=== PATIENT | female | born 1945 | race Caucasian/White ===

== ENCOUNTER 2017-05-20 13:31 | Observation (INO) | payer OTHER ==
[~2017-05-20] VITALS: Ht 142.2 cm; Wt 84.5 kg
[2017-05-20 14:06] LABS: HEMATOCRIT 34.5 % (36.0-46.0); HEMOGLOBIN 12.1 G/DL (11.9-15.5); MCH 30.8 PG (29.0-34.0); MCHC 35.1 G/DL (30.0-36.0); MCV 87.8 FL (83-99); PLATELET COUNT 139 K/uL (156-360); RBC DIS.WIDTH-CV 13.1 % (11.8-14.6); RBC DIS.WIDTH-SD 42.2 % (39-53); RED BLOOD COUNT 3.93 M/uL (3.80-5.20); WHITE BLOOD COUNT 11.3 K/uL (4.1-10.2)
[2017-05-20 14:15] LABS: CHLORIDE 94 mEq/L (99-109); POTASSIUM 3.9 mEq/L (3.7-5.4); SODIUM 128 mEq/L (136-147)
[2017-05-20 14:17] LABS: GLUCOSE 305 mg/dL (70-99)
[2017-05-20 14:21] LABS: CREATININE 1.8 mg/dL (0.6-1.3); GFR ESTIMATE (CALCULATED) 29 mL/min/; UREA NITROGEN (BUN) 27 mg/dL (9-23)
[2017-05-20 14:29] LABS: TROP-I INTERPRETATION NEGATIVE; TROPONIN-I 0.02 ng/mL (0.0-0.30)
[2017-05-20 15:59] LABS: MAGNESIUM 1.2 mg/dL (1.3-2.7)
[2017-05-20] MEDS ORDERED: BENZONATATE200 MG PO (17:30)
[2017-05-20] MEDS ORDERED: MAG-OXIDE400 MG PO (17:31)
[2017-05-20] MEDS ORDERED: CALCITRIOL0.25 MCG PO (17:31)
[2017-05-20] MEDS ORDERED: MONTELUKAST SOD10 MG PO (17:33)
[2017-05-20] MEDS ORDERED: ALLOPURINOL100 MG PO (17:35)
[2017-05-20] MEDS ORDERED: GLIPIZIDE XL10 MG PO (17:37)
[2017-05-20] MEDS ORDERED: PRAVASTATIN SOD20 MG PO (17:39)
[2017-05-20] MEDS ORDERED: NABI650T PO (17:40)
[2017-05-20] MEDS ORDERED: LANTUS 3 M100 UNITS1 SC (17:41)
[2017-05-20] MEDS ORDERED: VENTOLIN HFA18 GM IH (17:43)
[2017-05-20] MEDS ORDERED: JANUVIA25 MG PO (17:44)
[2017-05-20] MEDS ORDERED: HYDROCHLOROTHIA25 MG PO (17:45)
[2017-05-20] MEDS ORDERED: LABETALOL HCL300 MG PO (17:46)
[2017-05-20] MEDS ORDERED: LABETALOL HCL200 MG PO (17:48)
[2017-05-20] MEDS ORDERED: LO-DOSE ASPIRIN81 M2 PO (17:50)
[2017-05-20] MEDS ORDERED: ZYRTEC10 M3 PO (17:51)
[2017-05-20 19:30] VITALS: BP 170/90
[2017-05-20 20:19] LABS: TROP-I INTERPRETATION NEGATIVE; TROPONIN-I 0.06 ng/mL (0.0-0.30)
[2017-05-21] VITALS (8 sets, daily range): BP systolic 116–180; BP diastolic 63–97
[2017-05-21 02:41] LABS: TROP-I INTERPRETATION NEGATIVE; TROPONIN-I 0.22 ng/mL (0.0-0.30)
[2017-05-21 05:29] LABS: HEMATOCRIT 35.5 % (36.0-46.0); HEMOGLOBIN 12.1 G/DL (11.9-15.5); MCH 30.2 PG (29.0-34.0); MCHC 34.1 G/DL (30.0-36.0); MCV 88.5 FL (83-99); PLATELET COUNT 156 K/uL (156-360); RBC DIS.WIDTH-CV 13.2 % (11.8-14.6); RBC DIS.WIDTH-SD 42.8 % (39-53); RED BLOOD COUNT 4.01 M/uL (3.80-5.20); WHITE BLOOD COUNT 12.5 K/uL (4.1-10.2)
[2017-05-21 06:50] LABS: CHLORIDE 93 MEQ/L (99-109); CREATININE 1.8 MG/DL (0.6-1.3); GFR ESTIMATE (CALCULATED) 29 mL/min/; POTASSIUM 3.7 MEQ/L (3.7-5.4); SODIUM 129 MEQ/L (136-147); UREA NITROGEN (BUN) 27 mg/dL (9-23)
[2017-05-21 06:52] LABS: GLUCOSE 136 mg/dL (70-99)
[2017-05-21 07:56] LABS: THYROTROPIN (TSH) 1.5 MIU/L (0.4-5.5)
[2017-05-22] VITALS (8 sets, daily range): BP systolic 129–194; BP diastolic 73–99
[2017-05-23 03:30] VITALS: BP 144/92
[2017-05-23 08:19] VITALS: BP 146/83
[2017-05-23 09:59] LABS: CHLORIDE 98 MEQ/L (99-109); CREATININE 1.8 MG/DL (0.6-1.3); GFR ESTIMATE (CALCULATED) 29 mL/min/; MAGNESIUM 1.6 mg/dl (1.3-2.7); POTASSIUM 3.5 MEQ/L (3.7-5.4); SODIUM 132 MEQ/L (136-147)
[2017-05-23 10:01] LABS: GLUCOSE 227 mg/dL (70-99); UREA NITROGEN (BUN) 51 mg/dL (9-23)
[2017-05-23 12:15] VITALS: BP 136/88
[2017-05-23 15:34] VITALS: BP 137/100
[2017-05-23 19:30] VITALS: BP 158/82
[2017-05-24 00:16] VITALS: BP 176/91
[2017-05-24 02:24] VITALS: BP 142/86
[2017-05-24 06:27] LABS: HEMATOCRIT 37.2 % (36.0-46.0); HEMOGLOBIN 12.8 G/DL (11.9-15.5); MCH 30.9 PG (29.0-34.0); MCHC 34.4 G/DL (30.0-36.0); MCV 89.9 FL (83-99); RBC DIS.WIDTH-CV 13.2 % (11.8-14.6); RED BLOOD COUNT 4.14 M/uL (3.80-5.20); WHITE BLOOD COUNT 13.8 K/uL (4.1-10.2)
[2017-05-24 06:35] LABS: CHLORIDE 99 MEQ/L (99-109); CREATININE 1.7 MG/DL (0.6-1.3); GFR ESTIMATE (CALCULATED) 31 mL/min/; GLUCOSE 203 mg/dL (70-99); MAGNESIUM 1.8 mg/dl (1.3-2.7); SODIUM 130 MEQ/L (136-147); UREA NITROGEN (BUN) 50 mg/dL (9-23)
[2017-05-24 06:47] LABS: PLATELET COUNT 253 K/uL (156-360)
[2017-05-24 08:54] VITALS: BP 140/89
[2017-05-24 11:42] VITALS: BP 152/69
[2017-05-24 16:45] VITALS: BP 155/79
[2017-05-24 19:05] VITALS: BP 168/79
[2017-05-25] VITALS (7 sets, daily range): BP systolic 137–191; BP diastolic 75–95
[2017-05-25 06:20] LABS: HEMATOCRIT 37.6 % (36.0-46.0); HEMOGLOBIN 12.7 G/DL (11.9-15.5); MCH 29.8 PG (29.0-34.0); MCHC 33.8 G/DL (30.0-36.0); MCV 88.3 FL (83-99); PLATELET COUNT 291 K/uL (156-360); RBC DIS.WIDTH-CV 13.1 % (11.8-14.6); RBC DIS.WIDTH-SD 42.5 % (39-53); RED BLOOD COUNT 4.26 M/uL (3.80-5.20); WHITE BLOOD COUNT 12.1 K/uL (4.1-10.2)
[2017-05-25 07:01] LABS: CHLORIDE 100 MEQ/L (99-109); CREATININE 1.7 MG/DL (0.6-1.3); GFR ESTIMATE (CALCULATED) 31 mL/min/; GLUCOSE 131 mg/dL (70-99); POTASSIUM 4.4 MEQ/L (3.7-5.4); SODIUM 135 MEQ/L (136-147); UREA NITROGEN (BUN) 51 mg/dL (9-23)
[2017-05-25 07:07] LABS: MAGNESIUM 2.3 mg/dl (1.3-2.7)
[2017-05-26 04:00] VITALS: BP 141/63
[2017-05-26 06:05] LABS: HEMOGLOBIN 11.6 G/DL (11.9-15.5); MCH 30.2 PG (29.0-34.0); MCHC 34.1 G/DL (30.0-36.0); MCV 88.5 FL (83-99); PLATELET COUNT 265 K/uL (156-360); RBC DIS.WIDTH-CV 13.1 % (11.8-14.6); RBC DIS.WIDTH-SD 42.3 % (39-53); RED BLOOD COUNT 3.84 M/uL (3.80-5.20); WHITE BLOOD COUNT 12.3 K/uL (4.1-10.2)
[2017-05-26 06:39] LABS: CHLORIDE 96 MEQ/L (99-109); CREATININE 1.7 MG/DL (0.6-1.3); GFR ESTIMATE (CALCULATED) 31 mL/min/; GLUCOSE 126 mg/dL (70-99); POTASSIUM 4.2 MEQ/L (3.7-5.4); SODIUM 129 MEQ/L (136-147); UREA NITROGEN (BUN) 44 mg/dL (9-23)
[2017-05-26 07:28] VITALS: BP 165/90
[2017-05-26] MEDS ORDERED: ROBITUSSIN DM118 ML PO (09:28)
[2017-05-26] MEDS ORDERED: NIFEDIPINE ER30 MG PO (09:28)
[2017-05-26] MEDS ORDERED: LOPRESSOR100 M1 PO (09:28)
[2017-05-26] MEDS ORDERED: CARDIZEM60 MG PO (09:28)
[2017-05-26] MEDS ORDERED: BENZONATATE200 MG PO (09:28)
[2017-05-26] MEDS ORDERED: PRAVASTATIN SOD40 MG PO (09:28)
[2017-05-26] MEDS ORDERED: LEVEMIR100 UNIT/2 SC (09:28)
[2017-05-26] MEDS ORDERED: ELIQUIS5 MG PO (09:28)
[2017-05-26 11:38] VITALS: BP 159/74
[2017-05-26 15:04] VITALS: BP 164/73
[2017-05-26 21:10] VITALS: BP 151/68
[2017-05-26 23:35] VITALS: BP 155/63
[2017-05-27 01:20] VITALS: BP 144/63
[2017-05-27 01:26] VITALS: BP 144/63
[2017-05-27 03:56] VITALS: BP 167/77
[2017-05-27 07:30] VITALS: BP 169/79
[2017-05-27 11:23] VITALS: BP 147/69
[2017-05-27] MEDS ORDERED: NIFEDIPINE ER60 MG PO (12:58)
[2017-05-27] MEDS ORDERED: ZOFRAN4 MG PO (12:59)
[2017-05-27] MEDS ORDERED: JANUVIA25 M1 PO (13:13)
[2017-05-27] MEDS ORDERED: JANUVIA25 MG PO (14:05)
== END 2017-05-27 15:04 | disposition home or self-care (01) ==
LOC: EME 13:31 → EDOF 16:52 → 4EAST 16:52 → 3EAST 16:52 → ENRESERV 16:54 → 4EAST 19:13 → ENPENDDIS 05-26 → ENRESERV 05-27 00:27 → 3EAST 05-27 01:16
PROVIDERS: Family Medicine; Hospitalist; Internal Medicine; Physician Assistant Medical
DX: I48.91 Unspecified atrial fibrillation (principal); J20.9 Acute bronchitis, unspecified; I16.0 Hypertensive urgency; I12.9 Hypertensive chronic kidney disease with stage 1 through stage 4 chronic kidney disease, or unspecified chronic kidney disease; E11.22 Type 2 diabetes mellitus with diabetic chronic kidney disease; N18.3 Chronic kidney disease, stage 3 (moderate); E78.5 Hyperlipidemia, unspecified; E87.1 Hypo-osmolality and hyponatremia; E87.6 Hypokalemia; E83.42 Hypomagnesemia; M10.9 Gout, unspecified; Z87.01 Personal history of pneumonia (recurrent); Z86.19 Personal history of other infectious and parasitic diseases; Z85.528 Personal history of other malignant neoplasm of kidney; Z79.84 Long term (current) use of oral hypoglycemic drugs; Z79.82 Long term (current) use of aspirin; Z91.041 Radiographic dye allergy status
CPT/HCPCS: 71046; 80048; 82948; 83735; 83880; 84443; 84484; 85027; 93005; 93306; 94640; 94640 76; 94799; 99202; 99281; 99285; G0378; G8987 GO CH; G8988 GO CH; G8989 GO CH; J1160; J1650; J1815; J1940; J3475; J7512; S0028

== ENCOUNTER 2017-05-29 22:19 | Inpatient (IN) | payer OTHER ==
[~2017-05-29] VITALS: Ht 142.2 cm; Wt 83.4 kg
[~2017-05-29 22:19] MED LIST: ALLOPURINOL100 MG PO; BENZONATATE200 MG PO; CALCITRIOL0.25 MCG PO; CARDIZEM60 MG PO; ELIQUIS5 MG PO; GLIPIZIDE XL10 MG PO; HYDROCHLOROTHIA25 MG PO; JANUVIA25 M1 PO; JANUVIA25 MG PO; LABETALOL HCL200 MG PO; LABETALOL HCL300 MG PO; LANTUS 3 M100 UNITS1 SC; LEVEMIR100 UNIT/2 SC; LO-DOSE ASPIRIN81 M2 PO; LOPRESSOR100 M1 PO; MAG-OXIDE400 MG PO; MONTELUKAST SOD10 MG PO; NABI650T PO; NIFEDIPINE ER30 MG PO; NIFEDIPINE ER60 MG PO; PRAVASTATIN SOD20 MG PO; PRAVASTATIN SOD40 MG PO; ROBITUSSIN DM118 ML PO; VENTOLIN HFA18 GM IH; ZOFRAN4 MG PO; ZYRTEC10 M3 PO
[2017-05-29 23:54] LABS: HEMOGLOBIN 10.6 G/DL (11.9-15.5); MCH 31.1 PG (29.0-34.0); MCHC 36.6 G/DL (30.0-36.0); RBC DIS.WIDTH-CV 12.7 % (11.8-14.6); RBC DIS.WIDTH-SD 38.6 % (39-53); RED BLOOD COUNT 3.41 M/uL (3.80-5.20); WHITE BLOOD COUNT 19.2 K/uL (4.1-10.2)
[2017-05-29 23:59] LABS: PLATELET COUNT 392 K/uL (156-360)
[2017-05-30] VITALS (21 sets, daily range): BP systolic 102–139; BP diastolic 42–90
[2017-05-30 00:05] LABS: CHLORIDE 77 mEq/L (99-109)
[2017-05-30 00:11] LABS: UREA NITROGEN (BUN) 58 mg/dL (9-23)
[2017-05-30 00:16] LABS: CREATININE 3.2 mg/dL (0.6-1.3); GFR ESTIMATE (CALCULATED) 15 mL/min/; GLUCOSE 619 mg/dL (70-99); POTASSIUM 6.3 mEq/L (3.7-5.4); SODIUM 111 mEq/L (136-147)
[2017-05-30 00:19] LABS: TROP-I INTERPRETATION NEGATIVE; TROPONIN-I 0.02 ng/mL (0.0-0.30)
[2017-05-30] MEDS ORDERED: PRAVACHOL40 MG PO (01:01)
[2017-05-30] MEDS ORDERED: NIFEDIPINE ER60 MG PO (01:01)
[2017-05-30] MEDS ORDERED: ROBITUSSIN DM118 ML PO (01:02)
[2017-05-30] MEDS ORDERED: JANUVIA25 MG PO (01:03)
[2017-05-30] MEDS ORDERED: TYLENOL EXTRA500 MG PO (01:04)
[2017-05-30 02:14] LABS: BASE EXCESS 3.9 mEq/L (-3 to +3); BICARBONATE 27.3 mEq/L (22-26); CARBOXY HGB 2.2 % (0-5); METHEMOGLOBIN 1.1 % (0-1.5); PCO2 35 mm Hg (35-45); PO2 72 mm Hg (80-100)
[2017-05-30 02:15] LABS: COMMENTS - BLOOD GASES C+A+; DEVICE 980 VENT; FI02 40 %; MODE SPONT NIPPV; PEEP 5 CM/H20; PRES. SUPPORT 12 CM/H2O; SITE RR; TOTAL RESP RATE 16 resp/min
[2017-05-30 02:50] LABS: ALBUMIN 3.6 g/dL (3.2-4.8)
[2017-05-30 02:53] LABS: TOTAL PROTEIN 7.2 g/dL (6.4-8.3)
[2017-05-30 02:55] LABS: TOTAL BILIRUBIN 0.8 mg/dL (0.0-1.0)
[2017-05-30 02:56] LABS: ALKALINE PHOSPHATASE 221 IU/L (3-129)
[2017-05-30 02:58] LABS: AST (GOT) 62 IU/L (2-34)
[2017-05-30 02:59] LABS: ALT (GPT) 63 IU/L (3-49)
[2017-05-30 03:55] LABS: CHLORIDE 82 mEq/L (99-109); POTASSIUM 5.1 mEq/L (3.7-5.4)
[2017-05-30 04:01] LABS: CREATININE 3.3 mg/dL (0.6-1.3); GFR ESTIMATE (CALCULATED) 15 mL/min/
[2017-05-30 04:02] LABS: UREA NITROGEN (BUN) 62 mg/dL (9-23)
[2017-05-30 04:08] LABS: GLUCOSE 483 mg/dL (70-99); SODIUM 117 mEq/L (136-147)
[2017-05-30 07:14] LABS: CREATININE 3.2 MG/DL (0.6-1.3); GFR ESTIMATE (CALCULATED) 15 mL/min/; POTASSIUM 4.9 MEQ/L (3.7-5.4); UREA NITROGEN (BUN) 60 mg/dL (9-23)
[2017-05-30 07:20] LABS: CHLORIDE 81 MEQ/L (99-109); GLUCOSE 403 mg/dL (70-99); SODIUM 115 MEQ/L (136-147)
[2017-05-30 09:31] LABS: CHLORIDE 83 MEQ/L (99-109); CREATININE 3.2 MG/DL (0.6-1.3); GFR ESTIMATE (CALCULATED) 15 mL/min/; GLUCOSE 274 mg/dL (70-99); POTASSIUM 4.7 MEQ/L (3.7-5.4); UREA NITROGEN (BUN) 62 mg/dL (9-23)
[2017-05-30 09:36] LABS: SODIUM 118 MEQ/L (136-147)
[2017-05-30 12:11] LABS: BASOPHIL (%) 0.3 % (0-1); EOSINOPHIL (%) 0.6 % (0-5); EOSINOPHIL COUNT 0.1 K/uL (0-0.3); HEMATOCRIT 27.4 % (36.0-46.0); HEMOGLOBIN 9.8 G/DL (11.9-15.5); LYMPHOCYTE (%) 11.6 % (15-42); LYMPHOCYTE COUNT 1.7 K/uL (1.0-2.8); MCH 30.5 PG (29.0-34.0); MCHC 35.8 G/DL (30.0-36.0); MCV 85.4 FL (83-99); MONOCYTE (%) 8.2 % (3-12); MONOCYTE COUNT 1.2 K/uL (0-0.8); NEUTROPHIL (%) 78.3 % (45-76); NEUTROPHIL COUNT 11.1 K/uL (1.8-6.4); PLATELET COUNT 288 K/uL (156-360); RBC DIS.WIDTH-CV 12.5 % (11.8-14.6); RBC DIS.WIDTH-SD 38.4 % (39-53); RED BLOOD COUNT 3.21 M/uL (3.80-5.20); WHITE BLOOD COUNT 14.2 K/uL (4.1-10.2)
[2017-05-30 12:46] LABS: ALKALINE PHOSPHATASE 156 IU/L (3-129); ALT (GPT) 47 IU/L (3-49); AST (GOT) 36 IU/L (2-34); CHLORIDE 84 MEQ/L (99-109); CREATININE 3.2 MG/DL (0.6-1.3); GFR ESTIMATE (CALCULATED) 15 mL/min/; MAGNESIUM 2.3 mg/dl (1.3-2.7); PHOSPHORUS 3.7 mg/dL (2.5-4.9); POTASSIUM 4.3 MEQ/L (3.7-5.4); SODIUM 120 MEQ/L (136-147); TOTAL BILIRUBIN 0.5 MG/DL (0.0-1.0); TOTAL PROTEIN 5.9 G/DL (6.4-8.3); UREA NITROGEN (BUN) 62 mg/dL (9-23)
[2017-05-30 12:56] LABS: GLUCOSE 110 mg/dL (70-99)
[2017-05-30 17:07] LABS: CHLORIDE 84 MEQ/L (99-109); CREATININE 3.2 MG/DL (0.6-1.3); GFR ESTIMATE (CALCULATED) 15 mL/min/; POTASSIUM 4.3 MEQ/L (3.7-5.4); UREA NITROGEN (BUN) 62 mg/dL (9-23)
[2017-05-30 17:08] LABS: GLUCOSE 186 mg/dL (70-99)
[2017-05-30 17:11] LABS: SODIUM 119 MEQ/L (136-147)
[2017-05-30 18:35] LABS: HIGH-SENS C-REACTIVE PROTEIN > 8.00 MG/DL (0.02-0.20)
[2017-05-30 20:24] LABS: CHLORIDE 85 MEQ/L (99-109); GFR ESTIMATE (CALCULATED) 16 mL/min/; GLUCOSE 243 mg/dL (70-99); POTASSIUM 4.2 MEQ/L (3.7-5.4); SODIUM 120 MEQ/L (136-147); UREA NITROGEN (BUN) 62 mg/dL (9-23)
[2017-05-31] VITALS (8 sets, daily range): BP systolic 104–149; BP diastolic 59–90
[2017-05-31 02:25] LABS: CHLORIDE 88 mEq/L (99-109); POTASSIUM 4.3 mEq/L (3.7-5.4); SODIUM 124 mEq/L (136-147)
[2017-05-31 02:26] LABS: GLUCOSE 178 mg/dL (70-99)
[2017-05-31 02:30] LABS: GFR ESTIMATE (CALCULATED) 16 mL/min/
[2017-05-31 02:31] LABS: UREA NITROGEN (BUN) 61 mg/dL (9-23)
[2017-05-31 10:46] LABS: CHLORIDE 92 MEQ/L (99-109); CREATININE 2.7 MG/DL (0.6-1.3); GFR ESTIMATE (CALCULATED) 18 mL/min/; POTASSIUM 4.1 MEQ/L (3.7-5.4); SODIUM 126 MEQ/L (136-147); UREA NITROGEN (BUN) 57 mg/dL (9-23)
[2017-05-31 10:47] LABS: GLUCOSE 74 mg/dL (70-99)
[2017-05-31 16:00] LABS: CHLORIDE 89 MEQ/L (99-109); CREATININE 2.6 MG/DL (0.6-1.3); GFR ESTIMATE (CALCULATED) 19 mL/min/; POTASSIUM 4.2 MEQ/L (3.7-5.4); SODIUM 124 MEQ/L (136-147); UREA NITROGEN (BUN) 53 mg/dL (9-23)
[2017-05-31 16:01] LABS: GLUCOSE 278 mg/dL (70-99)
[2017-06-01] VITALS (9 sets, daily range): BP systolic 120–146; BP diastolic 56–80
[2017-06-01 06:28] LABS: VANCOMYCIN, TROUGH 14.9 MCG/ML (10-20)
[2017-06-01 07:34] LABS: CHLORIDE 93 MEQ/L (99-109); CREATININE 2.3 MG/DL (0.6-1.3); GFR ESTIMATE (CALCULATED) 22 mL/min/; POTASSIUM 3.9 MEQ/L (3.7-5.4); UREA NITROGEN (BUN) 46 mg/dL (9-23)
[2017-06-01 07:36] LABS: GLUCOSE 85 mg/dL (70-99); SODIUM 131 MEQ/L (136-147)
[2017-06-01 09:53] LABS: BASOPHIL (%) 0.5 % (0-1); BASOPHIL COUNT 0.1 K/uL (0-0.1); EOSINOPHIL (%) 0.4 % (0-5); EOSINOPHIL COUNT 0.1 K/uL (0-0.3); HEMATOCRIT 31.4 % (36.0-46.0); HEMOGLOBIN 11.3 G/DL (11.9-15.5); IMMATURE GRANULOCYTE (%) 0.6 % (0.0-0.7); LYMPHOCYTE (%) 10.2 % (15-42); LYMPHOCYTE COUNT 1.6 K/uL (1.0-2.8); MCH 31.6 PG (29.0-34.0); MCV 87.7 FL (83-99); MONOCYTE (%) 9.2 % (3-12); MONOCYTE COUNT 1.4 K/uL (0-0.8); NEUTROPHIL (%) 79.1 % (45-76); NEUTROPHIL COUNT 12.2 K/uL (1.8-6.4); PLATELET COUNT 372 K/uL (156-360); RBC DIS.WIDTH-SD 41.2 % (39-53); RED BLOOD COUNT 3.58 M/uL (3.80-5.20); WHITE BLOOD COUNT 15.4 K/uL (4.1-10.2)
[2017-06-02] VITALS (8 sets, daily range): BP systolic 121–168; BP diastolic 62–93
[2017-06-02 05:51] LABS: HEMATOCRIT 31.5 % (36.0-46.0); HEMOGLOBIN 10.7 G/DL (11.9-15.5); MCH 29.9 PG (29.0-34.0); PLATELET COUNT 338 K/uL (156-360); RBC DIS.WIDTH-CV 13.2 % (11.8-14.6); RBC DIS.WIDTH-SD 41.7 % (39-53); RED BLOOD COUNT 3.58 M/uL (3.80-5.20); WHITE BLOOD COUNT 13.2 K/uL (4.1-10.2)
[2017-06-02 06:16] LABS: CHLORIDE 93 MEQ/L (99-109); GFR ESTIMATE (CALCULATED) 26 mL/min/; SODIUM 132 MEQ/L (136-147); UREA NITROGEN (BUN) 38 mg/dL (9-23)
[2017-06-02 06:17] LABS: GLUCOSE 218 mg/dL (70-99)
[2017-06-03] VITALS (7 sets, daily range): BP systolic 150–170; BP diastolic 62–82
[2017-06-03 05:06] LABS: HEMATOCRIT 32.2 % (36.0-46.0); HEMOGLOBIN 11.2 G/DL (11.9-15.5); MCH 30.7 PG (29.0-34.0); MCHC 34.8 G/DL (30.0-36.0); MCV 88.2 FL (83-99); PLATELET COUNT 329 K/uL (156-360); RBC DIS.WIDTH-CV 13.2 % (11.8-14.6); RBC DIS.WIDTH-SD 43.1 % (39-53); RED BLOOD COUNT 3.65 M/uL (3.80-5.20); WHITE BLOOD COUNT 11.4 K/uL (4.1-10.2)
[2017-06-03 05:17] LABS: CHLORIDE 96 mEq/L (99-109); POTASSIUM 4.1 mEq/L (3.7-5.4); SODIUM 132 mEq/L (136-147)
[2017-06-03 05:18] LABS: MAGNESIUM 1.4 mg/dL (1.3-2.7)
[2017-06-03 05:19] LABS: GLUCOSE 139 mg/dL (70-99)
[2017-06-03 05:23] LABS: CREATININE 1.7 mg/dL (0.6-1.3); GFR ESTIMATE (CALCULATED) 31 mL/min/
[2017-06-03 05:24] LABS: UREA NITROGEN (BUN) 32 mg/dL (9-23)
[2017-06-04 03:23] VITALS: BP 147/75
[2017-06-04 05:37] LABS: HEMATOCRIT 31.7 % (36.0-46.0); HEMOGLOBIN 11.1 G/DL (11.9-15.5); MCH 30.9 PG (29.0-34.0); MCV 88.3 FL (83-99); PLATELET COUNT 352 K/uL (156-360); RBC DIS.WIDTH-CV 13.3 % (11.8-14.6); RBC DIS.WIDTH-SD 43.1 % (39-53); RED BLOOD COUNT 3.59 M/uL (3.80-5.20); WHITE BLOOD COUNT 10.9 K/uL (4.1-10.2)
[2017-06-04 06:03] LABS: CHLORIDE 96 MEQ/L (99-109); CREATININE 1.7 MG/DL (0.6-1.3); GFR ESTIMATE (CALCULATED) 31 mL/min/; GLUCOSE 124 mg/dL (70-99); POTASSIUM 3.8 MEQ/L (3.7-5.4); SODIUM 133 MEQ/L (136-147); UREA NITROGEN (BUN) 34 mg/dL (9-23)
[2017-06-04 08:04] VITALS: BP 138/80
[2017-06-04] MEDS ORDERED: METOPROLOL TART75 MG PO (11:01)
[2017-06-04] MEDS ORDERED: CARDIZEM CD,CA180 MG PO (11:02)
[2017-06-04] MEDS ORDERED: LASIX40 MG PO (11:03)
[2017-06-04 11:20] VITALS: BP 150/69
[2017-06-04] MEDS ORDERED: NOVOLOG 10100 UNITS/ SC ×2 (11:37→11:38)
[2017-06-05] MEDS ORDERED: NOVOLOG 10100 UNITS/ SC (00:33)
== END 2017-06-04 14:36 | DRG 189 ==
LOC: EME 22:19 → ENRESERV 05-30 01:14 → 4WEST 05-30 01:14 → 4EAST 05-30 01:14 → EDOF 05-30 01:14 → ENRESERV 05-30 01:42 → 4WEST 05-30 02:39 → ENRESERV 06-01 10:22 → 4EAST 06-01 11:46 → ENRESERV 06-02 15:33 → 3EAST 06-02 17:58
PROVIDERS: Emergency Medicine; Hospitalist; Internal Medicine; Internal Medicine Critical Care Medicine; Internal Medicine Nephrology; Specialist
PROC: 5A09357 Assistance with Respiratory Ventilation, Less than 24 Consecutive Hours, Continuous Positive Airway Pressure (ICD-10-PCS; principal; 2017-05-30)
DX: J96.01 Acute respiratory failure with hypoxia (principal); I13.0 Hypertensive heart and chronic kidney disease with heart failure and stage 1 through stage 4 chronic kidney disease, or unspecified chronic kidney disease; I50.33 Acute on chronic diastolic (congestive) heart failure; N17.9 Acute kidney failure, unspecified; N18.3 Chronic kidney disease, stage 3 (moderate); E11.22 Type 2 diabetes mellitus with diabetic chronic kidney disease; E11.00 Type 2 diabetes mellitus with hyperosmolarity without nonketotic hyperglycemic-hyperosmolar coma (NKHHC); E11.65 Type 2 diabetes mellitus with hyperglycemia; E87.1 Hypo-osmolality and hyponatremia; E83.42 Hypomagnesemia; E87.5 Hyperkalemia; E87.2 Acidosis; E86.0 Dehydration; I95.9 Hypotension, unspecified; R00.0 Tachycardia, unspecified; R04.2 Hemoptysis; I48.0 Paroxysmal atrial fibrillation; D63.8 Anemia in other chronic diseases classified elsewhere; E78.5 Hyperlipidemia, unspecified; J45.909 Unspecified asthma, uncomplicated; K21.9 Gastro-esophageal reflux disease without esophagitis; M10.9 Gout, unspecified; E66.9 Obesity, unspecified; Z79.01 Long term (current) use of anticoagulants; Z68.41 Body mass index [BMI] 40.0-44.9, adult
CPT/HCPCS: 36600; 71045; 80048; 80048 91; 80053; 80202; 81003; 82010; 82436; 82803; 82948; 83605; 83735; 83880; 83930; 83935; 84100; 84133; 84145 90; 84300; 84484; 84999; 85025; 85027; 85730; 86141; 87641; 93005; 94002; 94640; 94640 76; 94760; 94799; 97530 GO; 99202; 99281; 99285; J0610; J1815; J1940; J2060; J2543; J3370; J3475; J7030; J7050

== ENCOUNTER 2017-06-04 20:39 | Emergency (ER) | payer OTHER ==
[~2017-06-04] VITALS: Ht 142.2 cm; Wt 80.9 kg
[~2017-06-04 20:39] MED LIST changes: +CARDIZEM CD,CA180 MG PO; +LASIX40 MG PO; +METOPROLOL TART75 MG PO; +NOVOLOG 10100 UNITS/ SC; +PRAVACHOL40 MG PO; +TYLENOL EXTRA500 MG PO
[2017-06-05] MEDS ORDERED: NOVOLOG 10100 UNITS/ SC (00:33)
[2017-06-05 00:52] VITALS: BP 154/72
== END 2017-06-05 00:53 | disposition home or self-care (01) ==
LOC: EME 20:39
DX: Z76.0 Encounter for issue of repeat prescription (principal); I48.91 Unspecified atrial fibrillation; I13.0 Hypertensive heart and chronic kidney disease with heart failure and stage 1 through stage 4 chronic kidney disease, or unspecified chronic kidney disease; E11.22 Type 2 diabetes mellitus with diabetic chronic kidney disease; N18.3 Chronic kidney disease, stage 3 (moderate); I50.9 Heart failure, unspecified; Z79.84 Long term (current) use of oral hypoglycemic drugs; J45.909 Unspecified asthma, uncomplicated
CPT/HCPCS: 99281; 99283